=== PATIENT | female | born 1930 | race Caucasian/White ===

== ENCOUNTER 2017-11-13 11:33 | Inpatient (IN) | payer MEDICARE ==
[2017-11-13] MEDS ORDERED: Acetaminophen 325 MG TAB ONE (12:58)
--- NOTE | 2017-11-13 14:06 | RAD ---
AP PELVIS: Date: 11/13/17 HISTORY: Patient presents with right hip pain after a fall. FINDINGS: The pelvic ring appears intact, without any definite fracture. The subcapital region of the right fem oral neck is difficult to assess due to rotation. SI joints are symmetric. No diastasis of the symphy sis. IMPRESSION: Rotation of the right hip. I cannot exclude the possibility of a subcapital fracture of the right fem oral neck on the basis of this examination. POS: [facility]
[2017-11-13 14:10] LABS: #Eosinphils 0.1 thou/uL (0.0-0.7); #Lymphocytes 1.5 thou/uL (1.20-3.40); #Monocytes 0.5 thou/uL (0.11-0.59); #Neutrophils 8.3 thou/uL (1.40-6.50); %Basophils 0.1 % (0.0-1.0); %Lymphocytes 14.6 % (21.0-51.0); %Neutrophils 79.3 % (42.0-75.0); Mean Corpuscular HGB CONC 34.8 g/dL (32.0-36.0); Mean Corpuscular Hemoglobin 31.3 pg (27.0-31.0); Mean Corpuscular Volume 89.9 fl (81.0-99.0); Mean Platelet Volume 7.1 fL (7.4-10.4); Platelet Count 160 thou/uL (130-400); RBC Distribution Width 12.8 % (11.5-14.5); Red Blood Cell (RBC) Count 4.48 mill/uL (4.20-5.40); White Blood Cell (WBC) Count 10.5 thou/uL (4.8-10.8)
--- NOTE | 2017-11-13 14:13 | RAD ---
RADIOGRAPH RIGHT HIP 2 VIEWS: Date: 11/13/17 Time: 1306 hours HISTORY: 87-year-old female status post acute traumatic injury to right hip from fall. FINDINGS: Although a fracture lucency is not visualized, there is overlap of the superolateral aspect of the fe moral neck with the superolateral aspect of the femoral head, highly suspicious for an impacted subca pital fracture. No dislocation. Femoral head contour is maintained. Hip joint space is maintained. IMPRESSION: Evidence for acute, traumatic, impacted subcapital femoral neck fracture. POS: [facility]
[2017-11-13 14:16] LABS: INR-International Normal Ratio 1.1; PTT 27.3 SEC (22.9-36.1); Prothrombin Time 13.9 SEC (12.0-14.7)
[2017-11-13 14:36] LABS: ALT (SGPT) 25 U/L (8-55); AST (SGOT) 27 U/L (5-34); Albumin 4.2 g/dL (3.4-4.8); Alkaline Phosphatase 94 U/L (40-150); Anion Gap 13 mmol/L (10-20); BUN (Urea Nitrogen) 15 mg/dL (9.8-20.1); Calc. Creatinine Clearance 0 mL/min (70-130); Calcium 9.7 mg/dL (7.8-10.44); Carbon Dioxide 23 mmol/L (23-31); Chloride 109 mmol/L (98-107); Estimated GFR-MDRD 57; Globulin 3.1 g/dL (2.4-3.5); Glucose 106 mg/dL (83-110); Potassium 3.7 mmol/L (3.5-5.1); Protein, Total 7.3 g/dL (6.0-8.3); Sodium 141 mmol/L (136-145)
[2017-11-13] MEDS ORDERED: CEFAZOLIN/Water 2 GM/20 ML SYRINGE ONE ×2 (15:27→15:33)
[2017-11-13] MEDS ORDERED: Glycopyrrolate 0.2 MG/ML 5 ML SYRINGE ONE (15:28)
[2017-11-13] MEDS ORDERED: Ondansetron HCl/PF 4 MG/2 ML Vial ONE ×2 (15:28→17:53)
[2017-11-13] MEDS ORDERED: Lidocaine 1% PF 5 ML VIAL ONE (15:28)
[2017-11-13] MEDS ORDERED: PROPOFOL 200 MG/20 ML VIAL ONE (15:28)
[2017-11-13] MEDS ORDERED: PHENYLEPHRINE-NS 100 MCG/ML 10 ML SYRINGE ONE (15:28)
[2017-11-13] MEDS ORDERED: Labetalol 100 MG/20 ML MDV ONE (15:28)
--- NOTE | 2017-11-13 15:36 | RAD ---
PORTABLE CHEST: Date: 11/13/17 COMPARISON: 01/10/17 study. HISTORY: Preop. FINDINGS: Heart size and mediastinum are within normal limits. There are atherosclerotic changes of the aorta. The lungs are clear of infiltrates. No significant bony findings. IMPRESSION: No active intrathoracic disease. POS: [facility]
[2017-11-13] MEDS ORDERED: Fentanyl 100 MCG/2 ML VIAL ONE ×2 (15:47→16:33)
[2017-11-13] MEDS ORDERED: Morphine 4 MG/ML VIAL ONE (17:44)
--- NOTE | 2017-11-13 17:50 | RAD ---
TWO VIEWS RIGHT HIP: History: Right hip fracture. FINDINGS: AP and lateral views of the right hip obtained and demonstrates placement of a right hip hemiarthropl asty in place. Acetabular and femoral components in good position. IMPRESSION: Right hip hemiarthroplasty. POS: [facility]
[2017-11-13] MEDS ORDERED: Promethazine HCl 25 MG/ML VIAL ONE (17:54)
[2017-11-13] MEDS ORDERED: Meperidine HCl/PF 25 MG/ML VIAL ONE (18:21)
[2017-11-13] MEDS ORDERED: Promethazine HCl 25 MG/ML VIAL IM/IV PRN (18:29)
[2017-11-13] MEDS ORDERED: Morphine Sulfate 2 MG/ML SYRINGE SLOW IVP PRN (18:29)
[2017-11-13] MEDS ORDERED: Ondansetron HCl/PF 4 MG/2 ML Vial IVP PRN ×2 (18:29→19:20)
[2017-11-13] MEDS ORDERED: Morphine 4 MG/ML Carpuject SLOW IVP PRN (18:29)
[2017-11-13] MEDS ORDERED: Meperidine HCl/PF 25 MG/ML VIAL SLOW IVP SCH (18:30)
[2017-11-13] MEDS ORDERED: hydrALAZINE 20 MG/ML VIAL SLOW IVP PRN (19:20)
[2017-11-13] MEDS ORDERED: Morphine 4 MG/ML Carpuject IVP PRN (19:20)
[2017-11-13] MEDS ORDERED: Dextrose 50% Abboject 50 ML SYRINGE SLOW IVP PRN (19:20)
[2017-11-13] MEDS ORDERED: Ibuprofen 800 MG TAB PO PRN (19:20)
[2017-11-13] MEDS ORDERED: Cyclobenzaprine 10 MG TAB PO PRN (19:20)
[2017-11-13] MEDS ORDERED: Acetaminophen 1,000 MG in Premix Bag 1 BAG IVPB SCH ×2 (19:20→20:30)
[2017-11-13] MEDS ORDERED: Ketorolac Tromethamine 30 MG/ML VIAL IVP SCH (19:20)
[2017-11-13] MEDS ORDERED: traMADol HCl 50 MG TAB PO PRN (19:20)
[2017-11-13] MEDS ORDERED: Dextrose 5% in Water 1,000 ML IV PRN (19:20)
[2017-11-13] MEDS ORDERED: Ibuprofen 600 MG TAB PO PRN (19:31)
--- NOTE | 2017-11-13 19:32 | HP ---
DATE OF ADMISSION: 11/13/2017 REQUESTING PHYSICIAN: Dr. Sheppard. ATTENDING SURGEON: Dr. Elias. CONSULTATION: Orthopedics, Dr. Manning. HISTORY OF PRESENT ILLNESS: The patient is an 87-year-old female who reportedly fell at home this mo rning around 5:00 a.m. She reports that she lost her balance and fell in her bathroom, had immediate right hip pain. She was able to summon help and eventually brought to the emergency department wher e she underwent evaluation and examination and was noted to have a right femoral neck fracture, at wh ich time we were asked to admit the patient and obtain orthopedic consultations. The patient denied loss of consciousness, hitting her head, shortness of breath, dizziness or chest pain. The patient d oes have a history of falls. ALLERGIES: None. CURRENT MEDICATIONS: Lunesta, Pred Mild ophthalmic drops, baby aspirin, Coreg, lisinopril, Cardizem. PAST MEDICAL HISTORY: Atrial fibrillation, hypertension. PAST SURGICAL HISTORY: Colon resection and eye surgery. SOCIAL HISTORY: The patient lives independently at home, ambulates without a walker. She denies ligia gs, tobacco or alcohol use. PHYSICAL EXAMINATION: VITAL SIGNS: Blood pressure 154/109, heart rate 114, respirations 18, oxygen saturation is 97% on ro om air. HEENT: Head is normocephalic, atraumatic. Eyes: Extraocular movements intact. PERRLA bilaterally. Ears are atraumatic without discharge. Nose is atraumatic without discharge. Oropharynx is clear. NECK: Nontender. Trachea is midline. No JVD. CHEST: Clear to auscultation with good inspiratory and expiratory effort. HEART: Irregularly irregular, consistent with her atrial fibrillation. ABDOMEN: Soft, flat, nontender with active bowel sounds. Pelvis is stable with tenderness to palpat ion to the right hip consistent with her fracture. EXTREMITIES: Neurovascularly intact x4. Capillary refill is less than 3 seconds. Pulses are 2+. BACK: By report is atraumatic and nontender. LABORATORY FINDINGS: White blood cell count 10.5, hemoglobin 14.0, hematocrit 40.3, platelets 160. Sodium 141, potassium 3.7, chloride 109, CO2 of 23, BUN 15, creatinine 0.93, glucose 106. LFTs are u nremarkable. PT 14, INR 1.1, PTT 27. RADIOGRAPHS: AP chest shows no active intrathoracic disease. AP pelvis shows they cannot exclude th e possibility of subcapital fracture of the right femoral neck. Views of the right hip show evidence of acute traumatic impacted subcapital fracture of the right proximal femur. ASSESSMENT AND PLAN: 1. Status post ground level fall. 2. Right subcapital femur fracture. 3. Atrial fibrillation. Plan will be to admit the patient to the surgical floor. Currently, after evaluation by Dr. Manning , the patient will be taken to the operating room to undergo surgical repair of her fracture. Postop eratively, we will do pain control, physical and occupational therapy, pulmonary toilet, gastritis, m echanical DVT prophylaxis and await placement decision.
[2017-11-13] MEDS ORDERED: Morphine 4 MG/ML VIAL IV PRN ×2 (19:34→19:35)
[2017-11-13] MEDS: Sodium Chloride 0.9% 1,000 ML IV SCH (20:26)
[2017-11-13] MEDS: Famotidine 20 MG TAB PO SCH (20:27)
[2017-11-13] MEDS: Acetaminophen 325 MG TAB PO SCH (22:17)
[2017-11-14 00:06] VITALS: BMI 27.6
[2017-11-14] MEDS: CEFAZOLIN/Water 2 GM/20 ML SYRINGE SLOW IVP SCH ×3 (00:07→16:51)
[2017-11-14] MEDS: Acetaminophen 325 MG TAB PO SCH ×6 (00:11→20:36)
[2017-11-14] MEDS ORDERED: Non-Formulary Item 1 EACH (Eszopiclone [Lunesta] 2 MG) PO PRN (04:00)
[2017-11-14] MEDS ORDERED: Zolpidem Tartrate 5 MG TAB PO PRN (04:07)
[2017-11-14] MEDS: Sodium Chloride 0.9% 1,000 ML IV SCH ×3 (05:01→20:34)
[2017-11-14 05:21] LABS: Anion Gap 10 mmol/L (10-20); BUN (Urea Nitrogen) 12 mg/dL (9.8-20.1); Calc. Creatinine Clearance 52 mL/min (70-130); Calcium 7.8 mg/dL (7.8-10.44); Carbon Dioxide 23 mmol/L (23-31); Chloride 110 mmol/L (98-107); Estimated GFR-MDRD 64; Glucose 119 mg/dL (83-110); Potassium 3.6 mmol/L (3.5-5.1); Sodium 139 mmol/L (136-145)
[2017-11-14 05:24] LABS: #Eosinphils 0.2 thou/uL (0.0-0.7); #Lymphocytes 1.2 thou/uL (1.20-3.40); #Monocytes 0.5 thou/uL (0.11-0.59); #Neutrophils 5.9 thou/uL (1.40-6.50); %Basophils 0.3 % (0.0-1.0); %Eosinophils 2.3 % (0.0-10.0); %Lymphocytes 15.8 % (21.0-51.0); %Monocytes 6.4 % (0.0-10.0); %Neutrophils 75.2 % (42.0-75.0); Hemoglobin 10.2 g/dL (12.0-16.0); Mean Corpuscular HGB CONC 33.6 g/dL (32.0-36.0); Mean Corpuscular Hemoglobin 30.9 pg (27.0-31.0); Mean Corpuscular Volume 91.8 fl (81.0-99.0); Mean Platelet Volume 7.3 fL (7.4-10.4); PLT Morphology Comment Appears Decreased; Platelet Count 118 thou/uL (130-400); RBC Distribution Width 12.9 % (11.5-14.5); White Blood Cell (WBC) Count 7.8 thou/uL (4.8-10.8)
[2017-11-14] MEDS: Lisinopril 20 MG TAB PO SCH ×2 (08:32→20:35)
[2017-11-14] MEDS: Famotidine 20 MG TAB PO SCH ×2 (08:33→20:35)
[2017-11-14] MEDS: Carvedilol 6.25 MG TAB PO SCH ×2 (08:34→16:51)
[2017-11-14] MEDS: traMADol HCl 50 MG TAB PO PRN ×2 (08:35→15:12)
[2017-11-14] MEDS: prednisoLONE Acet 0.12% Ophth Soln 5 ml Bottle EA EYE SCH (08:39)
[2017-11-14] MEDS: Aspirin 325 mg Enteric Coated Tablet PO SCH ×2 (09:38→20:36)
[2017-11-14] MEDS: Ondansetron ODT 4 MG TAB PO PRN (09:38)
--- NOTE | 2017-11-14 13:15 | PRG ---
DATE OF SERVICE: 11/14/2017 The patient is currently on the surgical floor. She is status post ground level fall in which she weems stained a right hip fracture. She underwent open reduction and internal fixation of the same yesterd radha. She tolerated this procedure well. This morning she states that she is tolerating a diet. Her pain is controlled and she is out of bed to the chair, awaiting physical therapy. OBJECTIVE: VITAL SIGNS: Temperature is 98.4, heart rate 63, blood pressure 153/74, respirations 16, oxygen satu ration is 95% on room air. GENERAL: The patient is resting comfortably in a chair and at bedside. She is awake, alert, and derrek ented x3. [place] coma scale is 15. HEENT: Unremarkable. LUNGS: Clear to auscultation bilaterally with good inspiratory and expiratory effort. HEART: Heart was regular rate and rhythm. ABDOMEN: Soft, flat, nontender with active bowel sounds. EXTREMITIES: Neurovascularly intact x4. Postoperative dressing is clean, dry and intact. LABORATORY DATA: White blood cell count 7.8, hemoglobin 10.2, hematocrit 30.3, platelets 118, sodium 139, potassium 3.6, chloride 110, CO2 23, BUN 12, creatinine 0.84, glucose 119. There are no radiographs to review this morning. ASSESSMENT AND PLAN: 1. Status post ground level fall. 2. Right subcapital femoral neck fracture, status post open reduction internal fixation of same. PLAN: The plan will be to continue supportive care, physical and occupational therapy, rehab consult ation and await final placement decision.
[2017-11-14] MEDS: Senokot S 8.6-50 MG TAB PO SCH (20:38)
[2017-11-15] MEDS: Sodium Chloride 0.9% 1,000 ML IV SCH ×2 (02:40→13:16)
[2017-11-15] MEDS: Acetaminophen 325 MG TAB PO SCH ×6 (02:40→19:54)
[2017-11-15 05:34] LABS: #Basophils 0.1 thou/uL (0.0-0.2); #Eosinphils 0.3 thou/uL (0.0-0.7); #Lymphocytes 1.6 thou/uL (1.20-3.40); #Monocytes 0.5 thou/uL (0.11-0.59); #Neutrophils 5.4 thou/uL (1.40-6.50); %Basophils 0.8 % (0.0-1.0); %Lymphocytes 20.4 % (21.0-51.0); %Monocytes 5.9 % (0.0-10.0); %Neutrophils 68.8 % (42.0-75.0); Hemoglobin 9.6 g/dL (12.0-16.0); Mean Corpuscular HGB CONC 33.6 g/dL (32.0-36.0); Mean Corpuscular Hemoglobin 31.4 pg (27.0-31.0); Mean Corpuscular Volume 93.4 fl (81.0-99.0); Mean Platelet Volume 7.6 fL (7.4-10.4); Platelet Count 125 thou/uL (130-400); RBC Distribution Width 13.1 % (11.5-14.5); Red Blood Cell (RBC) Count 3.06 mill/uL (4.20-5.40); White Blood Cell (WBC) Count 7.8 thou/uL (4.8-10.8)
[2017-11-15 05:41] LABS: Anion Gap 6 mmol/L (10-20); BUN (Urea Nitrogen) 9 mg/dL (9.8-20.1); Calc. Creatinine Clearance 52 mL/min (70-130); Carbon Dioxide 27 mmol/L (23-31); Chloride 108 mmol/L (98-107); Estimated GFR-MDRD 63; Glucose 123 mg/dL (83-110); Magnesium 1.9 mg/dL (1.6-2.6); Phosphorus 2.2 mg/dL (2.3-4.7); Potassium 3.6 mmol/L (3.5-5.1); Sodium 137 mmol/L (136-145)
[2017-11-15] MEDS: Ondansetron ODT 4 MG TAB PO PRN (09:22)
[2017-11-15] MEDS: Famotidine 20 MG TAB PO SCH ×2 (09:23→19:52)
[2017-11-15] MEDS: Aspirin 325 mg Enteric Coated Tablet PO SCH ×2 (09:23→19:53)
[2017-11-15] MEDS: Lisinopril 20 MG TAB PO SCH ×2 (09:24→23:44)
[2017-11-15] MEDS: Carvedilol 6.25 MG TAB PO SCH ×2 (09:24→17:55)
[2017-11-15] MEDS: Senokot S 8.6-50 MG TAB PO SCH ×2 (09:24→23:44)
[2017-11-15] MEDS: prednisoLONE Acet 0.12% Ophth Soln 5 ml Bottle EA EYE SCH (09:25)
[2017-11-15] MEDS: Polyethylene Glycol 3350 17 GM Packet PO SCH (09:26)
--- NOTE | 2017-11-15 19:14 | PRG ---
DATE OF SERVICE: 11/15/2017 SUBJECTIVE: The patient is currently on the surgical floor. She is status post ground level fall in which she sustained a right hip fracture. She has undergone open reduction and internal fixation of the same. She tolerated that procedure well. Today, she is hospital day #3, postop day #2. She lopez s begun working with physical and occupational therapy. She states that her pain is controlled and s he is working with physical and occupational therapy. OBJECTIVE: VITAL SIGNS: Temperature is 98.5, heart rate 61, blood pressure 117/60, respirations 20, oxygen satu ration is 91% on room air. GENERAL: The patient is resting comfortably in bed. She is awake, alert, and oriented x3. [place] coma scale is 15. She states that she did have some nausea overnight. Otherwise, she was doing well . HEENT: Unremarkable. LUNGS: Clear to auscultation with good inspiratory and expiratory effort. HEART: Regular rate and rhythm. ABDOMEN: Soft, flat, nontender with active bowel sounds. EXTREMITIES: Neurovascularly intact x4. Postop dressing is clean, dry, and intact. LABORATORY FINDINGS: White blood cell count 7.8, hemoglobin 9.6, hematocrit 28.5, platelets 125. So dium 137, potassium 3.6, chloride 108, CO2 of 27, BUN 9, creatinine 0.85, glucose 123, phosphorus 2.2 , magnesium 1.9. No radiographs to review this morning. ASSESSMENT AND PLAN: 1. Status post ground level fall. 2. Status post open reduction and internal fixation of right hip fracture. Plan will be to continue supportive care, physical and occupational therapy, and await placement massiel sepulveda.
[2017-11-16] MEDS: Acetaminophen 325 MG TAB PO SCH ×4 (01:36→13:22)
[2017-11-16 05:45] LABS: #Eosinphils 0.2 thou/uL (0.0-0.7); #Lymphocytes 1.6 thou/uL (1.20-3.40); #Monocytes 0.6 thou/uL (0.11-0.59); #Neutrophils 5.9 thou/uL (1.40-6.50); %Basophils 0.4 % (0.0-1.0); %Eosinophils 2.4 % (0.0-10.0); %Lymphocytes 18.8 % (21.0-51.0); %Monocytes 7.6 % (0.0-10.0); %Neutrophils 70.9 % (42.0-75.0); Hemoglobin 9.2 g/dL (12.0-16.0); Mean Corpuscular HGB CONC 34.2 g/dL (32.0-36.0); Mean Corpuscular Hemoglobin 32.1 pg (27.0-31.0); Mean Corpuscular Volume 93.9 fl (81.0-99.0); Platelet Count 127 thou/uL (130-400); RBC Distribution Width 13.2 % (11.5-14.5); Red Blood Cell (RBC) Count 2.86 mill/uL (4.20-5.40); White Blood Cell (WBC) Count 8.4 thou/uL (4.8-10.8)
[2017-11-16 06:10] LABS: Anion Gap 11 mmol/L (10-20); BUN (Urea Nitrogen) 10 mg/dL (9.8-20.1); Calc. Creatinine Clearance 47 mL/min (70-130); Calcium 8.2 mg/dL (7.8-10.44); Carbon Dioxide 23 mmol/L (23-31); Chloride 106 mmol/L (98-107); Estimated GFR-MDRD 57; Glucose 111 mg/dL (83-110); Magnesium 1.9 mg/dL (1.6-2.6); Phosphorus 2.3 mg/dL (2.3-4.7); Potassium 3.5 mmol/L (3.5-5.1); Sodium 136 mmol/L (136-145)
[2017-11-16] MEDS: Famotidine 20 MG TAB PO SCH (08:18)
[2017-11-16] MEDS: Carvedilol 6.25 MG TAB PO SCH (08:18)
[2017-11-16] MEDS: Senokot S 8.6-50 MG TAB PO SCH (08:18)
[2017-11-16] MEDS: Polyethylene Glycol 3350 17 GM Packet PO SCH (08:18)
[2017-11-16] MEDS: Lisinopril 20 MG TAB PO SCH (08:18)
[2017-11-16] MEDS: Aspirin 325 mg Enteric Coated Tablet PO SCH (08:18)
[2017-11-16] MEDS: prednisoLONE Acet 0.12% Ophth Soln 5 ml Bottle EA EYE SCH (08:21)
--- NOTE | 2017-11-16 11:45 | OP ---
DATE OF PROCEDURE: 11/13/2017 PREOPERATIVE DIAGNOSIS: Right femoral neck fracture, subcapital. POSTOPERATIVE DIAGNOSIS: Right femoral neck fracture, subcapital. SURGICAL PROCEDURE: Right hip hemiarthroplasty. ANESTHESIA: General. SURGEON: Delmer Manning M.D. CRYSTAL GROWING TECHNICIAN: SALAS Chester. BLOOD LOSS: 100 mL. IMPLANTS: DePuy [place] size 7 stem with a +1.5 head and a 28 x 47 cup. COMPLICATIONS: None. DRAINS: None. SPECIMEN: None. OUTCOME: Satisfactory. INDICATIONS: Patient is an 87-year-old lady status post ground level fall sustaining a left subcapit al femoral neck fracture with displacement. After discussion with patient including risks and benefi ts, we decided to proceed with a hemiarthroplasty. Risks and benefits were discussed. Risks include d, but are not limited to bleeding, infection, nerve injury, DVT, PE, dislocation, loss of limb or li fe. The patient appears to understand and does wish to proceed. Consent has been obtained. PROCEDURE IN DETAIL: After timeout was performed, induction of general anesthesia performed and then patient was positioned on the OR table in the left lateral decubitus position with a sterile prep an d drape performed of the right lower extremity. Next, a curvilinear incision was made centered over the greater trochanter. After skin was sharply incised, dissection was carried down bluntly to the u nderlying tensor fascia and fascia magui. This structure was incised in line with the skin incision a nd then a Charnley retractor placed in the wound. The trochanteric bursa was swept off the short ext ernal rotators and then the piriformis was released and tagged as were the superior and inferior geme lli and obturator internus. These were reflected posteriorly to protect the sciatic nerve. Next, a T capsulotomy was performed with the limbs of the capsulotomy tagged with #2 Vicryl. At this point, the fracture could be visualized. The femoral head was removed using a corkscrew device. Once remov ed, it was sized to a size 47. Next, an oscillating saw was used to make a femoral neck cut. A T lopez ndle awl was then passed down the canal of the femur. This was followed by passage of a lateralizing reamer. Progressive T handle damian were then passed down the femur until a size 7 was felt to be of appropriate fit and fill. This was followed by broaching starting at size 3, continuing up to size 7. With size 7, there was found to be excellent stability of the broach. A trial reduction was then performed on the broach and a +1.5 head gave excellent stability of the hip and advent of leg l engths. Next, the trial components were removed from the hip and then 3 liters of normal saline with Pulsavac were irrigated through the wound. Next, the size 7 [place] stem was inserted in the femur i n standard fashion. Once fully seated, the bipolar cup was applied to the stem and the hip reduced. She demonstrated excellent stability with reduction. At this point, wound closure was performed. T he capsule was reapproximated with #2 Vicryl. This was followed by #2 Vicryl for repair of the pirif ormis and superior gemelli. Next, a #1 Vicryl was used for the tensor fascia and fascia magui followe d by 0 Vicryl for Rylan's fascia, 2-0 Vicryl subcutaneously, and stephen for the skin. Xeroform gau ze and tape dressing was applied to the thigh and then patient was transferred to recovery room in [facility] condition. There were no complications and she tolerated the procedure well.
[2017-11-16 11:53] VITALS: BP 100/55; TEMP 97.6
== END 2017-11-16 14:10 | disposition swing bed (61) | DRG 470 ==
LOC: ERS 11:33 → SURG A 15:07 → SDC 16:44 → SURG A 17:19
PROVIDERS: ADMIT Surgery; ATTEND Surgery
PROC: 0SRR0JZ Replacement of Right Hip Joint, Femoral Surface with Synthetic Substitute, Open Approach (ICD-10-PCS; principal; 2017-11-13)
DX: S72.011A Unspecified intracapsular fracture of right femur, initial encounter for closed fracture (principal); W18.30XA Fall on same level, unspecified, initial encounter; I48.91 Unspecified atrial fibrillation; I10 Essential (primary) hypertension; Z79.82 Long term (current) use of aspirin; Z79.899 Other long term (current) drug therapy; Z91.81 History of falling; Y92.002 Bathroom of unspecified non-institutional (private) residence as the place of occurrence of the external cause
CPT/HCPCS: 36415; 51702; 71045; 72170; 80048; 80053; 83735; 84100; 85025; 85610; 85730; 93005; A4216; G8978-GP-CN; G8979-GP-CK; G8987-GO-CJ; G8988-GO-CI; J0131; J0360; J2001; J2175; J2270; J2405; J2550; J2704; J3010; Q0162

== ENCOUNTER 2017-12-02 11:04 | Emergency (ER) | payer MEDICARE ==
[2017-12-02 12:06] LABS: #Basophils 0.1 thou/uL (0.0-0.2); #Eosinphils 0.3 thou/uL (0.0-0.7); #Lymphocytes 1.5 thou/uL (1.20-3.40); #Monocytes 0.5 thou/uL (0.11-0.59); #Neutrophils 3.9 thou/uL (1.40-6.50); %Basophils 1.1 % (0.0-1.0); %Eosinophils 5.5 % (0.0-10.0); %Lymphocytes 23.2 % (21.0-51.0); %Monocytes 7.5 % (0.0-10.0); %Neutrophils 62.7 % (42.0-75.0); Hemoglobin 10.6 g/dL (12.0-16.0); Mean Corpuscular HGB CONC 32.9 g/dL (32.0-36.0); Mean Corpuscular Hemoglobin 30.3 pg (27.0-31.0); Mean Corpuscular Volume 92.1 fl (81.0-99.0); Mean Platelet Volume 6.7 fL (7.4-10.4); Platelet Count 290 thou/uL (130-400); RBC Distribution Width 13.6 % (11.5-14.5); Red Blood Cell (RBC) Count 3.51 mill/uL (4.20-5.40); White Blood Cell (WBC) Count 6.3 thou/uL (4.8-10.8)
--- NOTE | 2017-12-02 12:09 | ULT ---
VENOUS DOPPLER ULTRASOUND OF THE RIGHT LOWER EXTREMITY: Date: 12/02/17 HISTORY: Right hip surgery on 11/22/17. Right lower extremity edema and pain. TECHNIQUE: Bower scale ultrasound with color flow and spectral Doppler imaging of the deep venous system of the r ight lower extremity is performed. FINDINGS: There is good flow, compression, and augmentation noted in the right common femoral, femoral, deep fe moral, popliteal, posterior tibial, and greater saphenous veins. IMPRESSION: No evidence of deep venous thrombosis in the right lower extremity. POS: [facility]
[2017-12-02 12:25] LABS: ALT (SGPT) 22 U/L (8-55); AST (SGOT) 26 U/L (5-34); Albumin 3.8 g/dL (3.4-4.8); Alkaline Phosphatase 134 U/L (40-150); Anion Gap 13 mmol/L (10-20); BUN (Urea Nitrogen) 15 mg/dL (9.8-20.1); Bilirubin, Total 0.5 mg/dL (0.2-1.2); Calc. Creatinine Clearance 0 mL/min (70-130); Calcium 9.2 mg/dL (7.8-10.44); Carbon Dioxide 25 mmol/L (23-31); Chloride 107 mmol/L (98-107); Estimated GFR-MDRD 54; Glucose 90 mg/dL (83-110); Protein, Total 6.8 g/dL (6.0-8.3); Sodium 141 mmol/L (136-145)
[2017-12-02 12:31] LABS: CKMB 1.2 ng/mL (0-6.6); Troponin I Less than 0.010 ng/mL (< 0.028)
[2017-12-02 13:05] LABS: Bilirubin Negative (Negative); Blood, Urine Negative (Negative); Clarity CLEAR (Clear); Glucose, Urine (Dipstick) Negative (Negative); Leukocyte Trace (Negative); Nitrite Negative (Negative); Protein, Urine (Dipstick) Negative (Neg-Trace); Specific Gravity, Urine 1.015 (1.002-1.036); Urobilinogen 0.2 mg/dL (0.2-1.0); pH, Urine 6.5 (5.0-9.0)
[2017-12-02 13:06] LABS: Bacteria/HPF None Seen HPF (None Seen); Hyaline Casts/LPF 0-3 HYALINE CAST LPF (0-3 Hyaline); Squamous Epithelial 0-3 HPF (0-3)
--- NOTE | 2017-12-02 13:12 | RAD ---
CHEST 1 VIEW: Date: 12/02/17 COMPARISON: 11/21/17. HISTORY: Fever. Postop infection. FINDINGS: Normal cardiac silhouette. Pulmonary vessels and hilum are normal. Costophrenic angles are clear. Chr onic changes, without consolidation or mass. No pneumothorax or osseous abnormalities. IMPRESSION: No acute cardiopulmonary process. POS: [facility]
== END 2017-12-02 13:34 | disposition home or self-care (01) ==
LOC: ERS 11:04
DX: M96.841 Postprocedural hematoma of a musculoskeletal structure following other procedure (principal); R50.9 Fever, unspecified; I48.91 Unspecified atrial fibrillation; I10 Essential (primary) hypertension
CPT/HCPCS: 36415; 71045; 80053; 81003; 81015; 82553; 83605; 84484; 85025; 87040; 93005